=== PATIENT | female | born 1980 | race Caucasian/White ===

== ENCOUNTER 2017-02-04 10:24 | Emergency (ER) | payer MEDICAID ==
[~2017-02-04] VITALS: Ht 177.8 cm; Wt 65.8 kg
[2017-02-04 10:50] VITALS: BP 109/62
[2017-02-04] MEDS ORDERED: HYDROcodone-ACET 5/325MG TAB PO ONE (12:30)
== END 2017-02-04 12:33 | disposition home or self-care (01) ==
LOC: ER 10:24
DX: S52.501A Unspecified fracture of the lower end of right radius, initial encounter for closed fracture (principal); Z88.6 Allergy status to analgesic agent; W01.0XXA Fall on same level from slipping, tripping and stumbling without subsequent striking against object, initial encounter; Y93.89 Activity, other specified; Y99.8 Other external cause status; Y92.098 Other place in other non-institutional residence as the place of occurrence of the external cause
CPT/HCPCS: 29125; 73110